=== PATIENT | male | born 1995 | race Caucasian/White ===

== ENCOUNTER 2024-12-22 11:34 | Emergency (ER) | payer OTHER, SELFPAY ==
[2024-12-22 11:57] VITALS: BP 129/91; PULSE 81; RESP 18; TEMP 36.9; O2SAT 96; BMI 32.3
--- NOTE | 2024-12-22 12:16 | ED.GENADULT ---
HPI - General Adult General Chief complaint: Extremity Pain/Injury, Upper Stated complaint: Rt Shoulder pain Time Seen by Provider: 12/22/24 12:03 History of Present Illness HPI narrative: This 29-year-old male comes in because of sudden onset of severe pain in the posterior aspect of the left side of his neck extending to his shoulder. He states that he was combing his hair when this pain came on rather suddenly. He arrives here with his head bent forward and tilted to the right. He does not report any injury event to trigger this. He has resumed an exercise routine recently. He does not report any pain radiating down his left arm. Related Data Home Medications ?Medication ?Instructions ?Recorded ?Confirmed escitalopram oxalate 10 mg tablet 10 mg PO QDAY 10/24/24 12/22/24 Previous Rx's ?Medication ?Instructions ?Recorded cyclobenzaprine 10 mg tablet 10 mg PO TID #15 tabs 12/22/24 ketorolac 10 mg tablet 10 mg PO Q8H 5 days #15 tabs 12/22/24 Allergies Allergy/AdvReac Type Severity Reaction Status Date / Time No Known Drug Allergies Allergy Verified 12/22/24 11:56 Review of Systems Status of ROS: Reports: 10 or more systems reviewed and unremarkable except as noted in History and below Narrative: Constitutional: No fevers, no weight gain or loss. Eyes: No discharge. No vision changes. HENT: No congestion, no sore throat, no ear pain. Cardiovascular: No chest pain, no palpitations. Respiratory: No shortness of breath, no wheezes, no cough. Gastrointestinal: No abdominal pain, no vomiting, no diarrhea. Genitourinary: No dysuria, no hematuria. Musculoskeletal: Torticollis from spasm and pain in the left posterior and lateral neck musculature. Skin: No rashes, no pruritis. Neurological: No dizziness, weakness, sensory change, speech change. Endo/Heme/Allergies: No bruising or bleeding. No polydipsia. Pysch: no suicidality, no anxiety, no insomnia. All other systems reviewed and are negative. Exam Narrative: Exam Narrative: Constitutional: Well-developed, well-nourished, no acute distress. HEENT: Normocephalic, atraumatic. Neck: The patient is holding his head flexed forward and tilted to the right. He does not have any midline tenderness when palpating along his spine. He had worsening pain when I attempted to gently move his neck into a better position. Heart: Regular. No murmurs. Normal rate. Intact distal pulses. Lungs: Clear to auscultation. No chest discomfort. No wheezes, rhonchi, or rales. Abdomen: Normal bowel sounds. Nontender. No rebound tenderness. Genitalia: Deferred. Back: No midline tenderness. Normal range of motion. Extremities: Normal range of motion. No injury. Skin: Intact. No rash. Warm. No erythema or pallor. Neurologic: No altered sensation. No weakness. Alert and oriented. Psychiatric: No suicidality. No anxiety or depression. No insomnia. Nursing notes and vitals signs are reviewed. Const: Vital Signs, click to edit/add: Vital Signs - 24 hr 12/22/24 11:57 Temperature 98.5 F Pulse Rate [Pulse Oximeter] 81 Respiratory Rate 18 Blood Pressure [Ri t Upper Arm] 129/91 H Pulse Oximetry 96 Oxygen Delivery Me thod Room Air Course Vital Signs Vital signs: Initial Vital Signs Temperature 98.5 F 12/22/24 11:57 Temperature Source Temporal Artery Scan 12/22/24 11:57 Pulse Rate 81 12/22/24 11:57 Respiratory Rate 18 12/22/24 11:57 Blood Pressure 129/91 H 12/22/24 11:57 Blood Pressure Mean 103 12/22/24 11:57 Blood Pressure Position Sitting 12/22/24 11:57 Pulse Oximetry 96 12/22/24 11:57 Oxygen Delivery Method Room Air 12/22/24 11:57 Vital Signs Temperature 98.5 F 12/22/24 11:57 Pulse Rate 81 12/22/24 11:57 Respiratory Rate 18 12/22/24 11:57 Blood Pressure 129/91 H 12/22/24 11:57 Pulse Oximetry 96 12/22/24 11:57 Oxygen Delivery Method Room Air 12/22/24 11:57 Temperature 98.5 F 12/22/24 11:57 Pulse Rate 81 12/22/24 11:57 Respiratory Rate 18 12/22/24 11:57 Blood Pressure 129/91 H 12/22/24 11:57 Pulse Oximetry 96 12/22/24 11:57 Oxygen Delivery Method Room Air 12/22/24 11:57 Medications Administered Medications: Discontinued Medications Generic Name Dose Route Start Last Admin Trade Name Marcus PRN Reason Stop Dose Admin Ketorolac Tromethamine 30 mg 12/22/24 12:15 12/22/24 12:24 Ketorolac 30 Mg/Ml Inj IM 12/22/24 12:16 30 mg ONCE ONE Administration Medical Decision Making MDM Narrative Medical decision making narrative: This patient comes in with left-sided neck pain likely due to muscle spasm. There is no mechanism of injury that requires imaging at this time. He does not have any radiating pain down into his left arm. The patient did receive an intramuscular injection of Toradol 30 mg and was revisited by me later. He is holding his head in a better position and has significant relief of his symptoms. He is okay to be discharged home and encouraged to work on gentle range of motion in increase activity as tolerated. I did provide prescription for Toradol and Flexeril. Discharge Plan Discharge Clinical Impression: Acute torticollis Patient Disposition: Home, Self-Care Condition: Improved Additional Instructions: Take medication as needed and directed. Work on gentle range of motion and increase activity as tolerated. Follow up with MD return if worsening. Prescriptions: New cyclobenzaprine 10 mg tablet 10 mg PO TID Qty: 15 0RF ketorolac 10 mg tablet 10 mg PO Q8H 5 Days Qty: 15 0RF No Action escitalopram oxalate 10 mg tablet 10 mg PO QDAY Follow Up/Referrals: Provider,Not a Local [Primary Care Provider] - Stand Alone Forms: [facility] Info Instructions
[2024-12-22] MEDS: KETOROLAC 30 MG/ML inj IM (12:24)
== END 2024-12-22 13:20 | disposition home or self-care (01) ==
PROVIDERS: Emergency Provider Emergency Medicine Emergency Medical Services
DX: M43.6 Torticollis (principal)
CPT/HCPCS: 96372; 99283; 99284; J1885